=== PATIENT | male | born 1985 | race Caucasian/White ===

== ENCOUNTER 2017-05-08 23:02 | Emergency (ER) | payer OTHER ==
[~2017-05-08] VITALS: Ht 182.9 cm; Wt 71.2 kg
[2017-05-09] MEDS ORDERED: TRAMADOL HCL50 MG PO (00:33)
[2017-05-09] MEDS ORDERED: MOTRIN800 MG PO (00:33)
[2017-05-09] MEDS ORDERED: AMOXICILLIN875 MG PO (00:33)
[2017-05-09 00:45] VITALS: BP 124/80
== END 2017-05-09 00:50 | disposition home or self-care (01) ==
LOC: EME 23:02
DX: K08.89 Other specified disorders of teeth and supporting structures (principal); Z87.891 Personal history of nicotine dependence; F90.9 Attention-deficit hyperactivity disorder, unspecified type; F32.9 Major depressive disorder, single episode, unspecified
CPT/HCPCS: 99281; 99284; J1885

== ENCOUNTER 2017-06-24 18:06 | Emergency (ER) | payer OTHER ==
[~2017-06-24] VITALS: Ht 180.3 cm; Wt 68.8 kg
[~2017-06-24 18:06] MED LIST: AMOXICILLIN875 MG PO; MOTRIN800 MG PO; TRAMADOL HCL50 MG PO
[2017-06-24] MEDS ORDERED: ULTRACET1 TABLET PO (20:24)
[2017-06-24 20:35] VITALS: BP 121/84
== END 2017-06-24 20:37 | disposition home or self-care (01) ==
LOC: EME 18:06
DX: S62.666A Nondisplaced fracture of distal phalanx of right little finger, initial encounter for closed fracture (principal); S06.0X0A Concussion without loss of consciousness, initial encounter; S00.432A Contusion of left ear, initial encounter; W22.8XXA Striking against or struck by other objects, initial encounter; Y93.H3 Activity, building and construction; Z23 Encounter for immunization; Z87.891 Personal history of nicotine dependence
CPT/HCPCS: 70450; 73140; 99281; 99284

== ENCOUNTER 2017-08-12 01:50 | Emergency (ER) | payer OTHER ==
[~2017-08-12] VITALS: Ht 180.3 cm; Wt 70.3 kg
[~2017-08-12 01:50] MED LIST changes: +ULTRACET1 TABLET PO
[2017-08-12] MEDS ORDERED: AUGMENTIN875 MG PO (04:21)
[2017-08-12 04:38] VITALS: BP 103/44
== END 2017-08-12 04:38 | disposition home or self-care (01) ==
LOC: EME 01:50
DX: S02.31XA Fracture of orbital floor, right side, initial encounter for closed fracture (principal); Y04.2XXA Assault by strike against or bumped into by another person, initial encounter; W18.39XA Other fall on same level, initial encounter; Y07.9 Unspecified perpetrator of maltreatment and neglect; Z87.891 Personal history of nicotine dependence; Z91.040 Latex allergy status
CPT/HCPCS: 70450; 70486; 99281; 99284